=== PATIENT | male | born 1970 | race Caucasian/White ===

== ENCOUNTER 2018-02-04 08:18 | Inpatient (IN) ==
[2018-02-04] MEDS ORDERED: Sod Chloride 0.9% Inj 1,000 ML IV.SIG ONE (08:37)
[2018-02-04] MEDS ORDERED: Morphine Inj 4 MG/ML Vial IV.PUSH ONE ×2 (08:37→15:00)
--- NOTE | 2018-02-04 08:40 | ED ---
HPI General Chief Complaint: Abdominal Pain Stated Complaint: Lt side abd pain x 1 day Source: patient Mode of arrival: ambulatory Limitations: no limitations History of Present Illness HPI narrative: 47-year-old male patient with history of pancreatitis, alcohol use, presents to the ER today because he states that he is having 3 days history of upper abdominal pain with radiation to the back, nausea. He denies any vomiting, diarrhea, or other symptoms. He states that it got worse when he ate last night, states that he had alcohol on Saturday with his family, states he has been cutting back on alcohol use and he did not think a few beers with matter. Related Data Home Medications Medication Instructions Recorded Confirmed No Known Home Medications 02/04/18 02/04/18 Allergies Allergy/AdvReac Type Severity Reaction Status Date / Time No Known Allergies Allergy Verified 02/04/18 08:19 Review of Systems ROS: all other systems reviewed are negative [facility] Medical History Medical History History of fracture of finger (Acute) History of pancreatitis (Acute) Surgical History Surgical History H/O inguinal hernia repair (Acute) Social History Social History Substance History: No History of Abuse Smoking Status: Current every day smoker Tobacco Type: Cigarettes How Often Do You Have a Drink Containing Alcohol: 2 to 4 times a month Recent Travel in [facility] within the Last 8 Weeks: No Recent Out of Country Travel within the Last 8 Weeks: No Immunization History Tetanus Immunization: Unsure Hx Influenza Vaccine This Season: No Exam Narrative Exam Narrative: GENERAL: Well-developed middle-age male patient currently in moderate distress. Awake and oriented 3. SKIN: Focused skin assessment warm/dry. HEAD: Atraumatic. Normocephalic. EYES: Pupils equal and round. No scleral icterus. No injection or drainage. ENT: No nasal bleeding or discharge. Mucous membranes pink and moist. NECK: Trachea midline. No JVD. CARDIOVASCULAR: Regular rate and rhythm. No murmur appreciated. RESPIRATORY: No accessory muscle use. Clear to auscultation. Breath sounds equal bilaterally. GASTROINTESTINAL: Abdomen soft, upper abdominal tenderness with right upper quadrant more than left upper quadrant tenderness without guarding or rebound, nondistended. Hepatic and splenic margins not palpable. MUSCULOSKELETAL: No obvious deformities. No clubbing. No cyanosis. No edema. NEUROLOGICAL: Awake and alert. No obvious cranial nerve deficits. Motor grossly within normal limits. Normal speech. PSYCHIATRIC: Appropriate mood and affect; insight and judgment normal. Course Initial Documented Vital Signs Temperature 97.6 F 02/04/18 08:19 Pulse Rate 79 02/04/18 08:19 Respiratory Rate 18 02/04/18 08:19 Blood Pressure 161/94 H 02/04/18 08:19 Pulse Oximetry 98 02/04/18 08:19 Last Documented Vital Signs Temperature 97.6 F 02/04/18 08:19 Pulse Rate 63 02/04/18 10:32 Respiratory Rate 18 02/04/18 10:32 Blood Pressure 149/98 H 02/04/18 10:32 Pulse Oximetry 98 02/04/18 10:32 Medical Decision Making MDM Narrative Medical decision making narrative: Lab work was fairly unremarkable. His CAT scan did show signs of pancreatitis, consistent with his symptoms. IV fluids, pain medications, and antiemetics were given in the ER. After an hour, he requested further pain medications, complaining of poorly controlled pain. He was given further ibuprofen for pain as well in addition of the opiate pain medication given initially. At this point, my plan would be to admit him as an observation for pain control and pancreatitis. Case was discussed with Dr. Oshea for admission. Medical Screen Exam Complete: Yes Emergency Medical Condition: Yes Differential Diagnosis Differential Diagnosis: Gastritis versus gastroenteritis versus pancreatitis versus cholecystitis Lab Data Lab results reviewed: Yes I reviewed the patient's lab results. Result diagrams: 02/04/18 08:30 02/04/18 08:30 Lab Results 02/04/18 02/04/18 02/04/18 Range/Units 08:30 08:30 09:45 CBC w Diff Auto diff final WBC 8.3 (4.0-11.0) th/mm3 RBC 4.59 (4.50-5.90) mil/mm3 Hgb 15.6 (13.0-17.0) gm/dL Hct 44.3 (39.0-51.0) % MCV 96.4 (80.0-100.0) fL MCH 33.9 (27.0-34.0) pg MCHC 35.2 (32.0-36.0) % RDW 11.7 (11.6-17.2) % Plt Count 250 (150-450) th/mm3 MPV 8.0 (7.0-11.0) fL Neut % (Auto) 73.6 H (16.0-70.0) % Lymph % (Auto) 18.1 (9.0-44.0) % [place] % (Auto) 5.2 (0.0-8.0) % Eos % (Auto) 1.0 (0.0-4.0) % Baso % (Auto) 2.1 H (0.0-2.0) % Neut # (Auto) 6.1 (1.8-7.7) th/mm3 Lymph # (Auto) 1.5 (1.0-4.8) th/mm3 [place] # (Auto) 0.4 (0.0-0.9) th/mm3 Eos # (Auto) 0.1 (0.0-0.4) th/mm3 Baso # (Auto) 0.2 (0.0-0.2) th/mm3 WBC Differential . Differential Comment . Sodium 136 (136-145) meq/L Potassium 3.9 (3.5-5.1) meq/L Chloride 100 (98-107) meq/L Carbon Dioxide 23.2 (21.0-32.0) meq/L Anion Gap 13 (5-15) meq/L BUN 16 (7-18) mg/dL Creatinine 0.88 (0.60-1.30) mg/dL Estimated GFR Greater than 89 (>89) mL/min Random Glucose 198 H (74-106) mg/dL Calcium 7.8 L (8.5-10.1) mg/dL Total Bilirubin 0.5 (0.2-1.0) mg/dL AST 71 H (15-37) U/L ALT 63 (12-78) U/L Alkaline Phosphatase 104 (45-117) U/L Total Protein 7.0 (6.4-8.2) g/dL Albumin 3.4 (3.4-5.0) g/dL Lipase 186 (73-393) U/L Ur Collection Type Clean catch Urine Color Straw (Yellw/Straw) Urine Clarity Clear (Clear) Urine pH 6.0 (5.0-8.5) Ur Specific [place] 1.015 (1.002-1.035) Urine Protein Negative (Neg-Trace) mg/dL Urine Glucose (UA) Negative (Negative) mg/dL Urine Ketones Negative (Negative) mg/dL Urine Occult Blood Negative (Negative) Urine Nitrate Negative (Negative) Urine Bilirubin Negative (Negative) Urine Urobilinogen 0.2 (Less than 2) mg/dL Ur Leukocyte Esterase Negative (Negative) Micro UA Comment Culture not ind Ur Microscopic Review Microscopic reviewed Urine Culture Comments Culture not ind Imaging Data Attestation: I personally reviewed and interpreted this imaging study as follows : Radiologist's impression: Abdomen/Pelvis CT 02/04/18 08:37 CONCLUSION: 1. Mild inflammatory changes during the head of the pancreas suggestive of some focal pancreatitis. Recommend correlation with laboratory values. 2. Tiny 2 mm nonobstructing stone upper pole left kidney. 3. Mild diffuse enlargement of the prostate gland. Discharge Plan Discharge Disposition Patient Disposition: 30 Still Patient Discharge Condition Condition: Stable Discharge Details Anticipated Discharge Date: 02/04/18 Diagnosis: Pancreatitis Physicians Team ED Provider: Camila Carreno Primary Care Provider: Primary Care Amparo Becerra Attending Provider: Maryuri Oshea Discharge Interventions Interventions: Vital Signs Last Done: 02/04/18 10:32 Status ED Status: Admitted Observation Patient
[2018-02-04 08:49] LABS: Baso # (Auto) 0.2 th/mm3 (0.0-0.2); Baso % (Auto) 2.1 % (0.0-2.0); Eos # (Auto) 0.1 th/mm3 (0.0-0.4); Hematocrit 44.3 % (39.0-51.0); Hemoglobin 15.6 gm/dL (13.0-17.0); Lymph # (Auto) 1.5 th/mm3 (1.0-4.8); Lymph % (Auto) 18.1 % (9.0-44.0); Mean Corpuscular HGB Conc 35.2 % (32.0-36.0); Mean Corpuscular Hemoglobin 33.9 pg (27.0-34.0); Mean Corpuscular Volume 96.4 fL (80.0-100.0); Mono # (Auto) 0.4 th/mm3 (0.0-0.9); Mono % (Auto) 5.2 % (0.0-8.0); Neut # (Auto) 6.1 th/mm3 (1.8-7.7); Neut % (Auto) 73.6 % (16.0-70.0); Platelet Count 250 th/mm3 (150-450); Red Blood Count 4.59 mil/mm3 (4.50-5.90); Red Cell Distribution Width 11.7 % (11.6-17.2); White Blood Count 8.3 th/mm3 (4.0-11.0)
[2018-02-04 08:53] LABS: Chloride 100 meq/L (98-107); Potassium 3.9 meq/L (3.5-5.1)
[2018-02-04 08:57] LABS: Albumin 3.4 g/dL (3.4-5.0); Anion Gap 13 meq/L (5-15); Blood Urea Nitrogen 16 mg/dL (7-18); Calcium 7.8 mg/dL (8.5-10.1); Carbon Dioxide 23.2 meq/L (21.0-32.0); Glucose,Random 198 mg/dL (74-106); Lipase 186 U/L (73-393)
[2018-02-04 09:00] LABS: Glomerular Filtration Rate Greater Than 89 mL/min (>89)
[2018-02-04 09:05] LABS: Alkaline Phosphatase 104 U/L (45-117)
[2018-02-04 09:12] LABS: Sodium 136 meq/L (136-145)
[2018-02-04 09:13] LABS: Alanine Aminotransferase 63 U/L (12-78); Aspartate Aminotransferase 71 U/L (15-37)
--- NOTE | 2018-02-04 09:45 | CT ---
EXAM DATE: 02/04/2018 9:38 AM EDT AGE/SEX: 47 years / Male INDICATIONS: Left sided abdominal pain since yesterday. CLINICAL DATA: This is the patient's initial encounter. Patient reports that signs and symptoms have been present for 2 days and indicates a pain score of 5/10. MEDICAL/SURGICAL HISTORY: Pancreatitis. Inguinal hernia repair. ORAL CONTRAST: No oral contrast ingested. RADIATION DOSE: 9.05 CTDI (mGy) COMPARISON: No prior exams available for comparison. TECHNIQUE: Multiple contiguous axial images were obtained through the abdomen and pelvis following b olus infusion of 95 ml Omnipaque 350 (iohexol) nonionic water-soluble contrast as a single exam dos e. No oral contrast ingested. Using automated exposure control and adjustment of the mA and/or kV ac cording to patient size, radiation dose was kept as low as reasonably achievable to obtain optimal di agnostic quality images. DICOM format image data is available electronically for review and comparis on. FINDINGS: Lower Lungs: The visualized lower lungs are clear. Liver: The liver has a homogeneous density without space-occupying lesion. There is no dilation of th e biliary tree. The gallbladder is unremarkable. Spleen: Homogeneous density without enlargement. Pancreas: There is some mild inflammatory changes during the pancreas. Otherwise the pancreas is nor mal in size, shape and position. Kidneys: Normal in size and shape. No evidence of mass or hydronephrosis. Tiny 2 mm stone upper pole left kidney. The stone is not causing obstruction. The ureters are nondilated. Adrenal Glands: Unremarkable. Aorta: The aorta and proximal iliac vessels are grossly unremarkable without aneurysmal dilation. Bowel/Mesentery: The bowel loops are grossly unremarkable. The cecum and sigmoid colon have a normal configuration. The appendix is unremarkable. No inflammatory changes are seen. There is stool throug hout the colon. Abdominal Wall: Intact. Retroperitoneum: No evidence of adenopathy in the retrocrural, para-aortic, or deep pelvic regions. Bladder: Contours are smooth. Reproductive Organs: The prostate gland measures 5.5 cm in diameter. Inguinal: The inguinal region is unremarkable without evidence of adenopathy. Postsurgical changes a re noted in the left inguinal area most likely from hernia repair. Bony Structures: Mild degenerative changes. CONCLUSION: 1. Mild inflammatory changes during the head of the pancreas suggestive of some focal pancreatitis. Recommend correlation with laboratory values. 2. Tiny 2 mm nonobstructing stone upper pole left kidney. 3. Mild diffuse enlargement of the prostate gland. Electronically signed by: Jens Salazar MD 02/04/2018 9:43 AM EDT
[2018-02-04] MEDS ORDERED: Ibuprofen 600 MG Tablet PO ONE (10:00)
[2018-02-04 10:11] LABS: Bilirubin,Urine Negative (Negative); Clarity,Urine Clear (Clear); Glucose,Urine (UA) Negative (Negative); Leukocyte Esterase,Urine Negative (Negative); Nitrite,Urine Negative (Negative); Specific Gravity,Urine 1.015 (1.002-1.035); Urobilinogen,Urine 0.2 mg/dL (Less than 2)
[2018-02-04 10:14] LABS: Color,Urine Straw (Yellw/Straw)
[2018-02-04] MEDS: Sod Chloride 0.9% Inj 1,000 ML IV.CONT SCH ×2 (10:41→20:00)
[2018-02-04] MEDS ORDERED: Bisacodyl 10 MG Supp RECTAL PRN (11:00)
[2018-02-04] MEDS ORDERED: Acetaminophen 325 MG Tablet PO PRN (11:00)
--- NOTE | 2018-02-04 11:55 | US ---
EXAM DATE: 02/04/2018 11:51 AM EDT AGE/SEX: 47 years / Male INDICATIONS: Nausea and upper abdominal pain with radiation the the back. CLINICAL DATA: This is the patient's initial encounter. Patient reports that signs and symptoms have been present for 2 days and indicates a pain score of 5/10. MEDICAL/SURGICAL HISTORY: Pancreatitis. Inguinal hernia repair. COMPARISON: [facility], CT ABDOMEN & PELVIS W CONTRAST, 02/04/2018. . MEASUREMENTS: Liver:__ 15.1 cm. Common Bile Duct:__ 6mm. FINDINGS: Liver: Liver is unremarkable. No ductal dilatation. Portal Vein: Hepatopedal flow seen in portal vein. Common Duct: No intraluminal mass or stone visualized. Gallbladder: Demonstrates no wall thickening or pericholecystic fluid. No stones visualized. Pancreas: Pancreas is slightly heterogeneous Right Kidney: Normal echotexture and cortical thickness . No mass or hydronephrosis. Other: No ascites CONCLUSION: 1. No evidence for cholelithiasis. 2. Pancreas slightly heterogeneous. Electronically signed by: Oj Simms MD 02/04/2018 11:54 AM EDT
[2018-02-04] MEDS ORDERED: Morphine Inj 4 MG, Morphine Inj 2 MG IV.PUSH ONE ×2 (14:33)
--- NOTE | 2018-02-04 14:43 | P.HP ---
History of Present Illness Service: Hospitalist Primary Care Physician: No Primary Care Physician Chief Complaint: Epigastric abdominal pain History of Present Illness: Mr. Tobin is a 47 year old male with a history of recurrent pancreatitis who presents to the ED due to abdominal pain radiating to the back along with nausea and vomiting that started on 02/03/2018. Patient denies any chest pain, SOB, fever, chills. He has not been able to tolerate food. He has been trying to cut down alcohol intake. However, over the day weekend, he drank some alcohol with family. He denies any changes in bowel or bladder habits. Family history: Father and brother - with cancer. - Diagnosis (1) Pancreatitis Review of Systems All other systems reviewed negative except as [facility] - History History Provided By: Patient - Medical History Medical History: Medical History (Last Reviewed 02/04/18 @ 08:39 by Camila Carreno MD) History of fracture of finger History of pancreatitis - Surgical History Surgical History: Surgical History (Last Reviewed 02/04/18 @ 08:39 by Camila Carreno MD) H/O inguinal hernia repair - Tobacco History Tobacco Use In Past 30 Days: Yes Smoking Status: Current every day smoker Tobacco Type: Cigarettes - Alcohol History How Often Do You Have a Drink Containing Alcohol: 2 to 4 times a month - Substance Use History Substance History: No History of Abuse - Travel History Recent Travel in the [place] Within the Last 8 Weeks: No Recent Travel Out of the Country Within the Last 8 Weeks: No - Immunization History Tetanus Immunization: Unsure Hx Influenza Vaccine This Season: No Medications and Allergies Active Medications: Active Medications Acetaminophen (Tylenol) 650 mg PO Q4H PRN PRN Reason: Headache, fever, pain 1-5 Hydrocodone Bitart/Acetaminophen ([place] 7.5/325) 1 tab PO Q6H PRN PRN Reason: Pain 6-10. Al Hydroxide/Mg Hydroxide (Milk Of Magnesia Liq) 30 ml PO Q12H PRN PRN Reason: Mild Constipation Lipase/Protease/Amylase (Phyllis [place] /120) 1 cap PO TID CONRAD Bisacodyl (Dulcolax Supp) 10 mg RECTAL DAILY PRN PRN Reason: SEVERE CONSITIPATION Sodium Chloride (Ns Inj) 1,000 mls @ 100 mls/hr IV.CONT .Q10H CONRAD Last Admin: 02/04/18 10:41 Dose: 100 mls/hr Lactulose (Lactulose Liq) 30 ml PO DAILY PRN PRN Reason: SEVERE CONSITIPATION Morphine Sulfate (Morphine Inj) 6 mg IV.PUSH ONCE ONE Stop: 02/04/18 15:01 Morphine Sulfate (Morphine Inj) 5 mg IV.PUSH Q4H PRN PRN Reason: BREAKTHROUGH PAIN Ondansetron HCl (Zofran Inj) 4 mg IV.PUSH Q6H PRN PRN Reason: NAUSEA OR VOMITING Sennosides (Senokot) 17.2 mg PO Q12H PRN PRN Reason: Moderate Constipation Sodium Chloride (Ns Flush) 2 ml IV.FLUSH PRN PRN PRN Reason: FLUSH AFTER USING IV ACCESS Allergies Allergy/AdvReac Type Severity Reaction Status Date / Time No Known Allergies Allergy Verified 02/04/18 08:19 Home Medications Medication Instructions Recorded Confirmed Type No Known Home Medications 02/04/18 02/04/18 History Exam Vital signs: Vital Signs 02/04/18 08:19 02/04/18 10:32 02/04/18 12:00 Temperature 97.6 F 96.3 F L Pulse Rate 71 63 73 Respiratory Rate 18 18 17 Blood Pressure 148/96 H 149/98 H 160/98 H Pulse Oximetry 98 98 97 Intake & Output 02/03/18 02/04/18 02/04/18 18:59 06:59 18:59 Intake Total 1000 / 1000 Balance 1000 / 1000 Weight 75.7 kg Intake: IV 1000 / 1000 NS Inj 1,000 ML @ Wide Open IV. 1000 / 1000 SIG BOLUS ONE Rx#:[id number] Narrative: \GENERAL: This is a well-nourished, well-developed patient, in no apparent distress. SKIN: No rashes, ecchymoses or lesions. Warm and dry. HEAD: Atraumatic. Normocephalic. No temporal or scalp tenderness. EYES: Pupils equal round and reactive. No injection or drainage. ENT: Nose without bleeding, purulent drainage or septal hematoma. Airway patent. NECK: Trachea midline. No lymphadenopathy. Supple, nontender, no meningeal signs. CARDIOVASCULAR: Regular rate and rhythm without murmurs, gallops, or rubs. No JVD. RESPIRATORY: Clear to auscultation. Breath sounds equal bilaterally. No wheezes , rales, or rhonchi. GASTROINTESTINAL: Abdomen soft, Diffusely tender to palpation, especially upper abdomen, nondistended. No guarding. MUSCULOSKELETAL: Extremities without clubbing, cyanosis, or edema. NEUROLOGICAL: Awake and alert. Cranial nerves II through XII intact. No focal neurological deficits. Normal speech. Results - Labs CBC & Chem 7: 02/04/18 08:30 02/04/18 08:30 Labs: Laboratory Results - last 24 hr 02/04/18 02/04/18 02/04/18 08:30 08:30 09:45 CBC w Diff Auto diff final WBC 8.3 RBC 4.59 Hgb 15.6 Hct 44.3 MCV 96.4 MCH 33.9 MCHC 35.2 RDW 11.7 Plt Count 250 MPV 8.0 Neut % (Auto) 73.6 H Lymph % (Auto) 18.1 [place] % (Auto) 5.2 Eos % (Auto) 1.0 Baso % (Auto) 2.1 H Neut # (Auto) 6.1 Lymph # (Auto) 1.5 [place] # (Auto) 0.4 Eos # (Auto) 0.1 Baso # (Auto) 0.2 WBC Differential . Differential Comment . Sodium 136 Potassium 3.9 Chloride 100 Carbon Dioxide 23.2 Anion Gap 13 BUN 16 Creatinine 0.88 Estimated GFR Greater than 89 Random Glucose 198 H Calcium 7.8 L Total Bilirubin 0.5 AST 71 H ALT 63 Alkaline Phosphatase 104 Total Protein 7.0 Albumin 3.4 Lipase 186 Ur Collection Type Clean catch Urine Color Straw Urine Clarity Clear Urine pH 6.0 Ur Specific [place] 1.015 Urine Protein Negative Urine Glucose (UA) Negative Urine Ketones Negative Urine Occult Blood Negative Urine Nitrate Negative Urine Bilirubin Negative Urine Urobilinogen 0.2 Ur Leukocyte Esterase Negative Micro UA Comment Culture not ind Ur Microscopic Review Microscopic reviewed Urine Culture Comments Culture not ind - Imaging Impressions Gallbladder Ultrasound 02/04/18 00:00 CONCLUSION: 1. No evidence for cholelithiasis. 2. Pancreas slightly heterogeneous. Abdomen/Pelvis CT 02/04/18 08:37 CONCLUSION: 1. Mild inflammatory changes during the head of the pancreas suggestive of some focal pancreatitis. Recommend correlation with laboratory values. 2. Tiny 2 mm nonobstructing stone upper pole left kidney. 3. Mild diffuse enlargement of the prostate gland. Caprini VTE Risk Assessment Caprini VTE Risk Assessment: No/Low Risk (score <= 1) Caprini Risk Assessment Model: Point Value = 1 Point Value = 2 Point Value = 3 Point Value = 5 Age 41-60 Minor surgery BMI > 25 kg/m2 Swollen legs Varicose veins or History of unexplained or recurrent spontaneous Oral contraceptives or hormone replacement Sepsis (< 1 month) Serious lung disease, including pneumonia (< 1 month) Abnormal pulmonary function Acute myocardial infarction Congestive heart failure (< 1 month) History of inflammatory bowel disease Medical patient at bed rest Age 61-74 Arthroscopic surgery Major open surgery (> 45 min) Laparoscopic surgery (> 45 min) Malignancy Confined to bed (> 72 hours) Immobilizing plaster cast Central venous access Age >= 75 History of VTE Family history of VTE Factor V Leiden Prothrombin [id number] Lupus anticoagulant Anticardiolipin antibodies Elevated serum homocysteine Heparin-induced thrombocytopenia Other congenital or acquired thrombophilia Stroke (< 1 month) Elective arthroplasty Hip, pelvis, or leg fracture Acute spinal cord injury (< 1 month) Prophylaxis Regimen: Total Risk Factor Score Risk Level Prophylaxis Regimen 0-1 Low Early ambulation 2 Moderate Order ONE of the following: *Sequential Compression Device (SCD) *Heparin 5000 units SQ BID 3-4 Higher Order ONE of the following medications: *Heparin 5000 units SQ TID *Enoxaparin/Lovenox 40 mg SQ daily (WT < 150 kg, CrCl > 30 mL/min) *Enoxaparin/Lovenox 30 mg SQ daily (WT < 150 kg, CrCl > 10-29 mL/min) *Enoxaparin/Lovenox 30 mg SQ BID (WT < 150 kg, CrCl > 30 mL/min) AND/OR *Sequential Compression Device (SCD) 5 or more Highest Order ONE of the following medications: *Heparin 5000 units SQ TID (Preferred with Epidurals) *Enoxaparin/Lovenox 40 mg SQ daily (WT < 150 kg, CrCl > 30 mL/min) *Enoxaparin/Lovenox 30 mg SQ daily (WT < 150 kg, CrCl > 10-29 mL/min) *Enoxaparin/Lovenox 30 mg SQ BID (WT < 150 kg, CrCl > 30 mL/min) AND *Sequential Compression Device (SCD) Assessment and Plan - Assessment (1) Pancreatitis Code(s): K85.90 - Acute pancreatitis without necrosis or infection, unspecified Status: Acute - Plan Mr. Tobin is a 47 year old male with a history of pancreatitis and alcohol abuse who presents to the ED due to abdominal pain, nausea and vomiting. Acute on Chronic pancreatitis - NS 100cc/hour. - Acetaminophen, [place] and Morphine for pain management - Will start Creon as well. Alcohol abuse - patient counselled. Full code. Ambulation.
[2018-02-04] MEDS: Lipase/Protease/Amylase 24/76/120 DR Capsule PO SCH (19:43)
[2018-02-04] MEDS: Morphine Sulfate Inj 8 MG/ML Vial IV.PUSH PRN (20:55)
[2018-02-05] MEDS: Morphine Sulfate Inj 8 MG/ML Vial IV.PUSH PRN ×6 (00:56→21:32)
[2018-02-05] MEDS: Sod Chloride 0.9% Inj 1,000 ML IV.CONT SCH ×2 (06:15→16:31)
[2018-02-05] MEDS: Lipase/Protease/Amylase 24/76/120 DR Capsule PO SCH ×3 (08:57→17:38)
--- NOTE | 2018-02-05 17:46 | P.PN ---
Subjective Interval history: Follow-up for acute on chronic pancreatitis. Patient is currently doing better. His pain is controlled reports persistent pain. Denies any chest pain , shortness of breath, fever or chills. He would like to try regular food. Physical Exam Vital signs: Vital Signs 02/04/18 20:00 02/05/18 00:00 02/05/18 08:00 Temperature 96.3 F L 96.2 F L 97.2 F L Pulse Rate 57 L 57 L 54 L Respiratory Rate 20 20 18 Blood Pressure 157/90 H 141/87 H 141/82 H Pulse Oximetry 97 98 97 02/05/18 12:00 02/05/18 16:00 Temperature 96.3 F L 96.3 F L Pulse Rate 59 L 52 L Respiratory Rate 18 18 Blood Pressure 129/86 162/90 H Pulse Oximetry 98 98 Intake & Output 02/04/18 02/05/18 02/05/18 18:59 06:59 18:59 Intake Total 1720 / 1720 2888 / 2888 0 / 0 Balance 1720 / 1720 2888 / 2888 0 / 0 Weight 76.2 kg 76.2 kg Intake: IV 1000 / 1000 1928 / 1928 0 / 0 NS Inj 1,000 ML @ 100 mls/hr IV 1928 / 1928 0 / 0 .CONT .Q10H CONRAD Rx#:[id number] NS Inj 1,000 ML @ Wide Open IV. 1000 / 1000 SIG BOLUS ONE Rx#:[id number] Oral 720 / 720 960 / 960 Other: # Voids 4 1 Date of Last Bowel Movement 02/04/18 02/04/18 # Bowel Movements 0 Weight On Admission 76.2 kg Narrative: GENERAL: Alert, oriented 3, NAD. SKIN: Warm and dry. HEAD: Normocephalic. EYES: No scleral icterus. No injection or drainage. NECK: Supple, trachea midline. No JVD or lymphadenopathy. CARDIOVASCULAR: Regular rate and rhythm without murmurs, gallops, or rubs. RESPIRATORY: Breath sounds equal bilaterally. No accessory muscle use. GASTROINTESTINAL: Abdomen soft, diffuse tenderness to palpation., nondistended. MUSCULOSKELETAL: No cyanosis, or edema. BACK: Nontender without obvious deformity. No CVA tenderness. Results - Labs CBC & Chem 7: 02/04/18 08:30 02/04/18 08:30 Assessment and Plan - Assessment (1) Pancreatitis Code(s): K85.90 - Acute pancreatitis without necrosis or infection, unspecified Status: Acute - Plan Mr. Tobin is a 47 year old male with a history of pancreatitis and alcohol abuse who presents to the ED due to abdominal pain, nausea and vomiting. Acute on Chronic pancreatitis -We will DC IV fluid. - Acetaminophen, [place] and Morphine for pain management -Continue Creon as well. -Advance diet to regular diet. Alcohol abuse - patient counselled. Full code. Ambulation.
[2018-02-05 22:11] VITALS: RESP 20
[2018-02-06 01:08] VITALS: TEMP 96.8
[2018-02-06] MEDS: Morphine Sulfate Inj 8 MG/ML Vial IV.PUSH PRN ×2 (02:13→06:15)
[2018-02-06 07:33] VITALS: BP 115/75; PULSE 65; O2SAT 96
[2018-02-06] MEDS: Lipase/Protease/Amylase 24/76/120 DR Capsule PO SCH (09:29)
--- NOTE | 2018-02-06 09:40 | P.DS ---
Date of admission: 02/05/18 17:25 Primary care physician: No Primary Care Physician Brief History from admission: Mr. Tobin is a 47 year old male with a history of recurrent pancreatitis who presents to the ED due to abdominal pain radiating to the back along with nausea and vomiting that started on 02/03/2018. Patient denies any chest pain, SOB, fever, chills. He has not been able to tolerate food. He has been trying to cut down alcohol intake. However, over the day weekend, he drank some alcohol with family. He denies any changes in bowel or bladder habits. Family history: Father and brother - with cancer. DS: Diagnosis - Discharge Diagnosis (1) Pancreatitis Status: Acute DS: Medications - Discharge Medications Prescriptions: hydrocodone-acetaminophen 1 tab PO Q6H PRN #12 tab PRN Reason: Pain 6-10. [id number] [Creon] 1 cap PO TID #90 cap DS: Summary Hospital Course: Mr. Tobin is a 47 year old male with a history of pancreatitis and alcohol abuse who presents to the ED due to abdominal pain, nausea and vomiting. Acute on Chronic pancreatitis -We will DC IV fluid. - Acetaminophen, [place] and Morphine for pain management -Continue Creon as well. -Tolerating regular diet and had BM on 02/06/2018. Alcohol abuse - patient counselled. [email or web address] database was searched on 02/06/2018 and did not show any information regarding narcotic use. Will give 3 day supply of [place] 7.5/325 Q6hrs PRN #12. - Time Spent with Patient Total time spent providing and/or coordinating discharge services: Less than 30 minutes - Quality: VTE Deep Vein Thrombosis/Pulmonary Embolism Present on Admission: No Exam Vital signs: Vital Signs 02/05/18 12:00 02/05/18 16:00 02/05/18 20:00 Temperature 96.3 F L 96.3 F L 96.7 F L Pulse Rate 59 L 52 L 64 Respiratory Rate 18 18 20 Blood Pressure 129/86 162/90 H 126/66 Pulse Oximetry 98 98 98 02/06/18 00:00 02/06/18 07:32 Temperature 96.8 F L 96.8 F L Pulse Rate 62 65 Respiratory Rate 20 20 Blood Pressure 149/95 H 115/75 Pulse Oximetry 98 96 Intake & Output 02/05/18 02/06/18 02/06/18 18:59 06:59 18:59 Intake Total 1700 / 1700 2880 / 2880 Balance 1700 / 1700 2880 / 2880 Weight 74.3 kg Intake: IV 1100 / 1100 NS Inj 1,000 ML @ 100 mls/hr IV 1100 / 1100 .CONT .Q10H [facility]RAD Rx#:[id number] Oral 600 / 600 2880 / 2880 Other: # Voids 7 15 Date of Last Bowel Movement 02/04/18 # Bowel Movements 0 Narrative: GENERAL: Alert, Oriented x 3, NAD. SKIN: Warm and dry. HEAD: Normocephalic. EYES: No scleral icterus. No injection or drainage. NECK: Supple, trachea midline. No JVD or lymphadenopathy. CARDIOVASCULAR: Regular rate and rhythm without murmurs, gallops, or rubs. RESPIRATORY: Breath sounds equal bilaterally. No accessory muscle use. GASTROINTESTINAL: Abdomen soft, Mildly tender to palpation, nondistended. MUSCULOSKELETAL: No cyanosis, or edema. BACK: Nontender without obvious deformity. No CVA tenderness. Results Procedures completed during hospitalization: None - Impressions ITS Impressions Gallbladder Ultrasound 02/04/18 00:00 CONCLUSION: 1. No evidence for cholelithiasis. 2. Pancreas slightly heterogeneous. Abdomen/Pelvis CT 02/04/18 08:37 CONCLUSION: 1. Mild inflammatory changes during the head of the pancreas suggestive of some focal pancreatitis. Recommend correlation with laboratory values. 2. Tiny 2 mm nonobstructing stone upper pole left kidney. 3. Mild diffuse enlargement of the prostate gland. Discharge Plan - Discharge Disposition Patient Disposition: 01 Discharge Home - Discharge Condition Condition: Stable - Discharge Order Discharge Orders: Discharge Order (Routine); Ordered 02/06/18 Ordered By: Maryuri Oseha - Discharge Details Anticipated Discharge Date: 02/06/18 - Physicians Team Primary Care Provider: Primary Care Physici,No Attending Provider: Maryuri Oshea
== END 2018-02-06 10:25 | disposition home or self-care (01) ==
LOC: PHEDA 08:18 → PHED 08:18 → PH3 11:41
PROVIDERS: ADMIT Hospitalist; ATTEND Hospitalist